=== PATIENT | male | born 1935 | race African-American/Black ===

== ENCOUNTER 2019-04-08 14:21 | Emergency (ER) | payer OTHER ==
[~2019-04-08] VITALS: Ht 180.3 cm; Wt 59.4 kg
[2019-04-08] MEDS ORDERED: ALBU90OI INH (15:38)
[2019-04-08] MEDS ORDERED: ALBU3IS INH (15:38)
[2019-04-08] MEDS ORDERED: AMLO5 PO (15:38)
[2019-04-08] MEDS ORDERED: DULERA 200 MCG/13 GM INH (15:39)
[2019-04-08] MEDS ORDERED: Prinivil10 MG PO (15:39)
[2019-04-08] MEDS ORDERED: NITR.4SL SL (15:39)
[2019-04-08] MEDS ORDERED: Aspir 8181 MG PO (15:40)
[2019-04-08] MEDS ORDERED: OMEP20ER (15:40)
[2019-04-08] MEDS ORDERED: Pravachol40 MG PO (15:40)
[2019-04-08 16:13] LABS: BASOPHILS ABSOLUTE AUTO 0.03 K/mm3 (0.00-0.23); BASOPHILS PERCENT AUTO 0 % (0-2); EOSINOPHILS ABSOLUTE AUTO 0.08 K/mm3 (0.00-0.68); EOSINOPHILS PERCENT AUTO 1 % (0-6); Hematocrit 41.6 % (37.0-53.0); Hemoglobin 13.5 g/dL (13.5-17.5); IMMATURE GRAN ABSOLUTE AUTO 0.02 K/mm3 (0.00-0.10); IMMATURE GRAN PERCENT AUTO 0 % (0-1); LYMPHOCYTES ABSOLUTE AUTO 1.51 K/mm3 (0.84-5.20); LYMPHOCYTES PERCENT AUTO 22 % (21-46); MONOCYTES ABSOLUTE AUTO 0.68 K/mm3 (0.16-1.47); MONOCYTES PERCENT AUTO 10 % (4-13); Mean Corpuscular HGB 31.3 pg (26.0-34.0); Mean Corpuscular HGB Conc 32.5 g/dL (31.5-36.5); Mean Corpuscular Volume 96 fL (80-100); Mean Platelet Volume 10.2 fL (9.1-12.4); NEUTROPHILS ABSOLUTE AUTO 4.69 K/mm3 (1.96-9.15); NEUTROPHILS PERCENT AUTO 67 % (41-73); Platelet Count 218 K/mm3 (150-400); RDW Coefficient Variation 13.2 % (11.7-14.2); RDW Standard Deviation 47.3 fL (35.1-46.3); Red Blood Cell Count 4.32 M/mm3 (4.30-5.90); White Blood Cell Count 7.01 K/mm3 (4.00-11.30)
[2019-04-08 16:30] LABS: Alanine Aminotransfer (ALT/SGP 22 U/L (12-78); Albumin, Blood 4.2 g/dL (3.4-5.0); Albumin/Globulin Ratio 1.1 (0.8-1.8); Alk Phos 67 U/L (50-136); Anion Gap 4 mmol/L (6-16); Aspartate Aminotrans (AST/SGOT 16 U/L (12-37); Bilirubin, Total 0.5 mg/dL (0.1-1.0); Blood Urea Nitrogen 16 mg/dL (8-24); CO2, Blood 28 mmol/L (21-32); Calcium, Blood 9.2 mg/dL (8.5-10.1); Chloride, Blood 108 mmol/L (98-108); Globulin, Blood 3.8 g/dL (2.2-4.0); Glomerular Filtration Rate >60 (60-); Glucose, Blood 94 mg/dL (70-99); Sodium, Blood 140 mmol/L (136-145); Troponin I <0.015 ng/mL (0.000-0.040)
[2019-04-08] MEDS ORDERED: Norco 5-325 Ta1 EACH PO (19:15)
== END 2019-04-08 19:35 | disposition home or self-care (01) ==
LOC: ER 14:21
PROVIDERS: Emergency Medicine
DX: R07.9 Chest pain, unspecified (principal); Z79.899 Other long term (current) drug therapy; Z79.82 Long term (current) use of aspirin; I25.2 Old myocardial infarction; Z87.891 Personal history of nicotine dependence
CPT/HCPCS: 71046; 80053; 83690; 83880; 84484; 85025; 93005; 93010; 99285-25

== ENCOUNTER 2022-08-31 20:32 | Emergency (ER) | payer OTHER ==
[~2022-08-31] VITALS: Ht 180.3 cm; Wt 63.5 kg
[~2022-08-31 20:32] MED LIST: ALBU3IS INH; ALBU90OI INH; ALEN70 PO; AMLO5 PO; Aspir 8181 MG PO; DULERA 200 MCG/13 GM INH; NITR.4SL SL; Norco 5-325 Ta1 EACH PO; OMEP20ER; Pepcid20 MG PO; Pravachol40 MG PO; Prinivil10 MG PO; VITAMIN B-122000 MC1 PO
[2022-08-31 22:50] VITALS: BP 190/92
== END 2022-08-31 23:02 | disposition home or self-care (01) ==
LOC: ER 20:32
DX: G44.009 Cluster headache syndrome, unspecified, not intractable (principal); I25.2 Old myocardial infarction; I10 Essential (primary) hypertension; K21.9 Gastro-esophageal reflux disease without esophagitis; Z91.013 Allergy to seafood; Z79.899 Other long term (current) drug therapy; Z87.891 Personal history of nicotine dependence
CPT/HCPCS: 96372; 99284-25; J3030

== ENCOUNTER 2022-11-09 01:30 | Inpatient (IN) | payer OTHER ==
[2022-11-09] VITALS (15 sets, daily range): BP systolic 117–158; BP diastolic 66–87
[~2022-11-09] VITALS: Ht 180.3 cm; Wt 65.0 kg
[2022-11-09 04:18] LABS: BASOPHILS ABSOLUTE AUTO 0.03 K/mm3 (0.00-0.23); BASOPHILS PERCENT AUTO 0 % (0-2); EOSINOPHILS ABSOLUTE AUTO 0.12 K/mm3 (0.00-0.68); EOSINOPHILS PERCENT AUTO 2 % (0-6); Hematocrit 37.1 % (37.0-53.0); Hemoglobin 12.4 g/dL (13.5-17.5); IMMATURE GRAN ABSOLUTE AUTO 0.02 K/mm3 (0.00-0.10); IMMATURE GRAN PERCENT AUTO 0 % (0-1); LYMPHOCYTES ABSOLUTE AUTO 1.08 K/mm3 (0.84-5.20); LYMPHOCYTES PERCENT AUTO 16 % (21-46); MONOCYTES ABSOLUTE AUTO 0.53 K/mm3 (0.16-1.47); MONOCYTES PERCENT AUTO 8 % (4-13); Mean Corpuscular HGB 30.6 pg (26.0-34.0); Mean Corpuscular HGB Conc 33.4 g/dL (31.5-36.5); Mean Corpuscular Volume 92 fL (80-100); Mean Platelet Volume 9.7 fL (9.1-12.4); NEUTROPHILS PERCENT AUTO 74 % (41-73); Platelet Count 219 K/mm3 (150-400); RDW Coefficient Variation 14.6 % (11.7-14.2); RDW Standard Deviation 49.6 fL (35.1-46.3); Red Blood Cell Count 4.05 M/mm3 (4.30-5.90); White Blood Cell Count 6.88 K/mm3 (4.00-11.30)
[2022-11-09 04:43] LABS: Albumin, Blood 3.4 g/dL (3.4-5.0); Bilirubin, Total 0.6 mg/dL (0.1-1.0); Bun/Creatinine Ratio 17.2 (12.0-20.0); Calcium, Blood 8.7 mg/dL (8.5-10.1); Creatinine, Blood 0.81 mg/dL (0.60-1.20); Globulin, Blood 3.5 g/dL (2.2-4.0); Potassium, Blood 4.2 mmol/L (3.5-5.5); Total Protein, Blood 6.9 g/dL (6.4-8.2)
--- NOTE | 2022-11-09 06:11 | NUR ---
PT ARRIVAL PT ADMIT FOR R HIP FX VIA GURNEY, ACCOMPANIED BY S/O RANDY. A&OX4, PLEASANT AND COOPERATIVE. 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 NPO FOR PLANS OF SURGERY TODAY. PT REPORTS 5/10 PAIN, TOLERABLE. EDUCATED ON USE OF PAIN MEDS FOR PAIN CONTROL. V/U. S/O WILL BRING IN GLASSES, DENTURES, HEARING AIDS, AND MEDICATION LIST. PT REPORTS RECENT WEIGHT LOSS R/T DECREASE IN APPETITE, CURRENTLY TAKING MEDICATION TO INCREASE INTAKE/ APPETITE. PT REPORTS DX: COPD, DIMINISHED LUNG SOUNDS T/O, W/ USE OF NEBULIZER TX AT HOME AND OCCASIONAL 8L O2 NC FOR CLUSTER HEADACHES BEHIND LEFT EYE. REPORTED MINIMAL USE OF 10-60 MINUTES UNTIL HEADACHE SUBSIDES. PT ALSO HAS INGUINAL HERNIA TO LEFT LOWER ABD/ PUBIC. REPORTS NON PAINFUL, SOFT TO PALPATION. HX OF R INGUINAL HERNIA REPAIR. PT INDEP USE OF URINAL. SCD'S IN PLACE, AND CALL LIGHT W/IN REACH.
[2022-11-09] MEDS ORDERED: ASPI81CH PO (09:49)
[2022-11-09] MEDS ORDERED: OXYC5 PO (09:50)
[2022-11-09] MEDS ORDERED: Flonase 0.05% N16 GM (09:50)
[2022-11-09] MEDS ORDERED: IPRATROPIUM BRO30 ML NS (09:51)
[2022-11-09] MEDS ORDERED: DRON2.5 PO (09:52)
--- NOTE | 2022-11-09 11:34 | NUR ---
PT TO DAY SURGERY AT THIS TIME. TELE IN PLACE.
--- NOTE | 2022-11-09 11:49 | NUR ---
PT RECENTLY TO [facility] BY BED WITH MULT ASSIST. History, Chart, Medications and Allergies reviewed before start of procedure.Lungs clear T/O to Auscultation. Patient confirms NPO status and agrees with scheduled surgery. Pre-Op teaching done. Pt verbalizes understanding.
--- NOTE | 2022-11-09 13:08 | NUR ---
TELE RECENTLY NOTIFIED OF PT HEADING BACK TO OR. TELE PLACED IN PACU IN BAG WITH PT'S LABEL ON IT.
--- NOTE | 2022-11-09 14:40 | NUR ---
POST OP S/P RIGHT HIP NAILING. PT ALERT AND ORIENTED. REPORTS PAIN TO RIGHT HIP IS TOLERABLE. RIGHT HIP WITH FOAM DRESSING IN PLACE AND IS CDI. ABLE TO WIGGLE TOES AND PEDAL PULSES STRONG. POST OP VS STABLE AND IN PROGRESS. ENCOURAGING DEEP BREATHING. TELE IN PLACE. CALL LIGHT WITHIN REACH.
--- NOTE | 2022-11-09 16:55 | NUR ---
SHIFT SUMMARY PT DOING WELL S/P RIGHT HIP PINNING. NO ACUTE CHANGES. AWAKE AND ORIENTED. ABLE TO TOLERATE PO. IV SL. USING URINAL TO VOID. DRESSING TO RIGHT HIP REMAINS CDI. POST OP VS COMPLETE AND STABLE. REPORTS MINIMAL PAIN AND HAS DECLINED NEED FOR PAIN MEDICATIONS. TELE IN PLACE. USES CALL LIGHT APPROPRIATELY.
[2022-11-10 00:09] VITALS: BP 115/66
[2022-11-10 04:50] LABS: BASOPHILS ABSOLUTE AUTO 0.01 K/mm3 (0.00-0.23); BASOPHILS PERCENT AUTO 0 % (0-2); EOSINOPHILS PERCENT AUTO 0 % (0-6); Hematocrit 33.7 % (37.0-53.0); Hemoglobin 11.6 g/dL (13.5-17.5); IMMATURE GRAN ABSOLUTE AUTO 0.04 K/mm3 (0.00-0.10); IMMATURE GRAN PERCENT AUTO 1 % (0-1); LYMPHOCYTES ABSOLUTE AUTO 0.57 K/mm3 (0.84-5.20); LYMPHOCYTES PERCENT AUTO 7 % (21-46); MONOCYTES ABSOLUTE AUTO 0.47 K/mm3 (0.16-1.47); MONOCYTES PERCENT AUTO 6 % (4-13); Mean Corpuscular HGB 31.6 pg (26.0-34.0); Mean Corpuscular HGB Conc 34.4 g/dL (31.5-36.5); Mean Corpuscular Volume 92 fL (80-100); Mean Platelet Volume 10.1 fL (9.1-12.4); NEUTROPHILS ABSOLUTE AUTO 7.01 K/mm3 (1.96-9.15); NEUTROPHILS PERCENT AUTO 87 % (41-73); Platelet Count 192 K/mm3 (150-400); RDW Coefficient Variation 14.5 % (11.7-14.2); RDW Standard Deviation 49.3 fL (35.1-46.3); Red Blood Cell Count 3.67 M/mm3 (4.30-5.90)
[2022-11-10 05:03] VITALS: BP 117/96
[2022-11-10 05:13] LABS: Bun/Creatinine Ratio 17.8 (12.0-20.0); Calcium, Blood 8.6 mg/dL (8.5-10.1); Creatinine, Blood 0.84 mg/dL (0.60-1.20); Magnesium, Blood 1.9 mg/dL (1.6-2.4); Potassium, Blood 4.4 mmol/L (3.5-5.5)
--- NOTE | 2022-11-10 06:15 | NUR ---
SHIFT SUMMARY POD 1 R HIP PINNING, GAUZE/ PRESSURE TAPE C/D/I. A&OX4, VERY PLEASANT AND COOPERATIVE. [place], INDEPENDANT W/ URINAL, PT TO WORK W/ THERAPY TODAY. PT DENIES PAIN T/O SHIFT. PT PLANS FOR DISCHARGE TO HOME W/ S/O. CALL LIGHT W/IN REACH. NO ACUTE CHANGES THIS SHIFT.
[2022-11-10 07:23] VITALS: BP 125/61
[2022-11-10 14:23] VITALS: BP 135/62
--- NOTE | 2022-11-10 14:48 | NUR ---
SHIFT SUMMARY: POD 1 RIGHT HIP PINNING PATIENT IS A&OX4 BUT IS FALSE PASS. VS ARE WNL AND IS ON RA THOUGH AT BASELINE PATIENT WEARS 2-5L NC OF OXYGEN PRN WITH HX OF COPD. PATIENT DID DESAT TO 85% WHEN WORKING WITH PHYSICAL AND OCCUPATIONAL THERAPY BUT ONCE HE WAS AT REST WENT BACK UP TO 95% OXYGEN SATS. PATIENT REPORTS "SLIGHT DISCOMFORT" BUT WHEN OFFERED PO PAIN MEDICATIONS PATIENT REFUSES THEM SO FAR THIS SHIFT. HIS RIGHT HIP HAS AN AQUACEL THAT DR. COLLIER PLACE THAT IS C/D/I. DENIES NUMBNESS OR TINGLING IN ALL EXTREMITIES. HE IS A SBA WITH FWW AND GAIT BELT. HE IS TOLERATING PO INTAKE AND IS VOIDING. PATIENT IS LAYING IN BED PRACTICING HIS PHYSICAL THERAPY EXERCISES WITH CALL LIGHT IN REACH. THE PLAN IS TO DISCHARGE HOME WITH HOME HEALTH TOMORROW IF STILL APPROPRIATE.
[2022-11-10 19:32] VITALS: BP 125/64
--- NOTE | 2022-11-11 04:29 | NUR ---
SHIFT SUMMARY; NO ACUTE CHANGES OVERNIGHT. THE PT IS AXO X4 AND INDEPENDENT W/ A FWW. THE PT IS POD 2 FOR R HIP PINNING. THE PT DENIES ANY PAIN TO THE HIP BUT RATHER REPORTS SOARNESS. PT DENIES THE NEED FOR ANY PRN PAIN MEDICATION. THE PT HAS A AQUACEL DRESSING IN PLACE TO THE R HIP, IT IS C/D/I. THE PT HAS BEEN SLEEPING IN BED FOR THE DURATION OF THE SHIFT. THE PT DENIES ANY SOB, CHEST PAIN/PRESSURE, N/V OF NUMBNESS/TINGLING. CURRENTLY THE PT IS SLEEPING IN BED WITH THE BED IN THE LOWEST POSITION AND THE CALL LIGHT AT BEDSIDE. FIRE SAFETY MAINTAINED T/O THE NIGHT.
[2022-11-11 05:46] VITALS: BP 139/72
[2022-11-11 07:29] VITALS: BP 146/78
[2022-11-11] MEDS ORDERED: Acetaminophen650 M1 PO (12:00)
[2022-11-11] MEDS ORDERED: DOCU100 PO (12:00)
[2022-11-11] MEDS ORDERED: NARCAN4 M1 INH (12:01)
[2022-11-11] MEDS ORDERED: TRAM50 PO (13:24)
[2022-11-11 14:20] VITALS: BP 127/69
--- NOTE | 2022-11-11 15:18 | NUR ---
DISCHARGE PT AND HIS FRIEND WERE PROVIDED WITH WRITTEN AND VERBAL DISCHARGE INSTRUCTIONS. THEY REPORTED UNDERSTANDING. CLEAN DRESSINGS SENT HOME FOR DRESSING CHANGES. PT MET THERAPY GOALS BEFORE DISCHARGE. HOME HEALTH ORDERED FOR PHYSICAL THERAPY. PRESCRIPTION FOR PAIN MEDICATION PROVIDED. VSS AT TIME OF DISCHARGE. PT ASSISTED OUT BY DUONG AT 1448.
== END 2022-11-11 14:31 | disposition home or self-care (01) | DRG 482 ==
LOC: ER 01:30 → SURS 04:17
PROVIDERS: Internal Medicine; Orthopaedic Surgery; Student in an Organized Health Care Education/Training Program; ADMIT Internal Medicine
PROC: 0SH934Z Insertion of Internal Fixation Device into Right Hip Joint, Percutaneous Approach (ICD-10-PCS; principal; 2022-11-09 12:30)
DX: S72.011A Unspecified intracapsular fracture of right femur, initial encounter for closed fracture (principal); W01.0XXA Fall on same level from slipping, tripping and stumbling without subsequent striking against object, initial encounter; I10 Essential (primary) hypertension; K21.9 Gastro-esophageal reflux disease without esophagitis; J44.9 Chronic obstructive pulmonary disease, unspecified; Z91.013 Allergy to seafood; Z79.51 Long term (current) use of inhaled steroids; Z79.811 Long term (current) use of aromatase inhibitors; Z79.899 Other long term (current) drug therapy; I25.2 Old myocardial infarction; Z95.5 Presence of coronary angioplasty implant and graft; Z98.890 Other specified postprocedural states; Z87.891 Personal history of nicotine dependence; Z91.041 Radiographic dye allergy status; Z79.82 Long term (current) use of aspirin
CPT/HCPCS: 36415; 73502; 80048; 80053; 83735; 85025; 93005; 93010; 94640; 94664; 94760; 94762; 96374; 96375; 97110; 97116; 97161; 97165; 97530; 97535; 99285-25; A9270; C1713; C1769; C9113; J0690; J1100; J1650; J1885; J2250; J2405; J2704; J3010; J7030; J7120; Q0167

== ENCOUNTER 2022-12-22 14:30 | Day surgery (SDC) | payer OTHER ==
[~2022-12-22 14:30] MED LIST changes: +ASPI81CH PO; +Acetaminophen650 M1 PO; +DOCU100 PO; +DRON2.5 PO; +Flonase 0.05% N16 GM; +IPRATROPIUM BRO30 ML NS; +NARCAN4 M1 INH; +OXYC5 PO; +TRAM50 PO
== END 2022-12-22 23:10 | disposition home or self-care (01) ==
LOC: RAD 14:30
DX: S72.031D Displaced midcervical fracture of right femur, subsequent encounter for closed fracture with routine healing (principal)
CPT/HCPCS: 73502

== ENCOUNTER 2023-03-21 13:50 | Day surgery (SDC) | payer OTHER ==
[~2023-03-21] VITALS: Ht 182.9 cm; Wt 52.8 kg
[2023-03-21] MEDS ORDERED: Prinivil10 MG PO (14:42)
[2023-03-21] MEDS ORDERED: AMLO5 PO (14:43)
[2023-03-21] MEDS ORDERED: ALEN70 PO (14:46)
--- NOTE | 2023-03-21 14:54 | NUR ---
03/21/23 1454 Ele Chen AT 1435 PLEDGET AT 1440
[2023-03-21 15:55] VITALS: BP 129/85
--- NOTE | 2023-03-21 16:33 | NUR ---
03/21/23 [id number] Joy Martins PT DENIES PAIN. VSS. PARTNER RANDY AT CHAIRSIDE FOR DISCHARGE INSTRUCTIONS. ALL QUESTIONS ANSWERED. PT EXPRESSED READINESS TO GO HOME.
== END 2023-03-21 16:30 | disposition home or self-care (01) ==
LOC: ORSCSDS 13:50
PROVIDERS: Ophthalmology
PROC: 08RK3JZ Replacement of Left Lens with Synthetic Substitute, Percutaneous Approach (ICD-10-PCS; principal; 2023-03-21 15:30)
DX: H25.12 Age-related nuclear cataract, left eye (principal); Z96.1 Presence of intraocular lens; I25.10 Atherosclerotic heart disease of native coronary artery without angina pectoris; I10 Essential (primary) hypertension; I21.9 Acute myocardial infarction, unspecified; J44.9 Chronic obstructive pulmonary disease, unspecified; R06.02 Shortness of breath; Z79.899 Other long term (current) drug therapy
CPT/HCPCS: J2250; J3010; J3301; J7040; V2632